=== PATIENT | female | born 1985 | race American Indian/Alaskan Native ===

== ENCOUNTER 2018-12-28 18:20 | Emergency (ER) | payer MEDICAID ==
--- NOTE | 2018-12-28 19:24 | Emergency Department Report ---
Chief Complaint: Abdominal Pain Stated Complaint: 6WKS/LIGHT HEADED/ABD PAIN Time Seen by Provider: 12/28/18 19:22 - HPI History of Present Illness: pt states that she is 6 weeks states she is having abd pain no vomiting, diarrhea, fever no urinary sx no vaginal bleeding no PMHx has not seen OB had her confirmed by center MSE screening note: Focused history and physical exam performed. Due to findings the following was ordered: UA, labs, US OB ED Disposition for MSE Condition: Stable Instructions: Abdominal Pain (ED)
[2018-12-28 19:52] LABS: Basophils # (Auto) 0.1 K/mm3 (0.0-0.1); Eosinophils # (Auto) 0.1 K/mm3 (0.0-0.4); Eosinophils % (Auto) 1.9 % (0.0-4.3); Hematocrit 36.2 % (30.3-42.9); Lymphocytes # (Auto) 1.7 K/mm3 (1.2-5.4); Lymphocytes % (Auto) 28.2 % (13.4-35.0); Mean Corpuscular HGB Conc 33 % (30-34); Mean Corpuscular Volume 87 fl (79-97); Monocytes # (Auto) 0.4 K/mm3 (0.0-0.8); Platelet Count 225 K/mm3 (140-440); Red Blood Count 4.16 M/mm3 (3.65-5.03); Red Cell Distribution Width 13.9 % (13.2-15.2)
[2018-12-28 20:06] LABS: Alanine Aminotransferase 11 units/L (7-56); BUN/Creatinine Ratio 23; Blood Urea Nitrogen 9 mg/dL (7-17); Calcium 9.4 mg/dL (8.4-10.2); Hemolysis Index 42
[2018-12-28 21:44] LABS: Bacteria,Urine 2+ /HPF (Negative); Bilirubin,Urine NEG (Negative); Blood,Urine NEG (Negative); Color,Urine Straw (Yellow); Mucus,Urine FEW /HPF; Protein,Urine <15 mg/dL mg/dL (Negative); Urobilinogen,Urine < 2.0 mg/dL (<2.0)
--- NOTE | 2018-12-28 22:21 | Ultrasound Report ---
PROCEDURE: US OB <= 14 WEEKS FETUS TECHNIQUE: Transabdominal ultrasound of the uterus including fetus were obtained. HISTORY: abd pain, 6 weeks COMPARISONS: Transvaginal OB ultrasound also performed today. FINDINGS: This report was generated using images from both a transabdominal and transvaginal OB ultrasound both of which were performed today. Transabdominal scan was limited due to the lack of a full maternal ur inary bladder. There is a single living intrauterine gestation visualized with a heart rate of 110 bpm. Yolk sac and pole are visualized. [place]-rump length measurement of the pole is 4.5 mm corresponding t o an age of 6 weeks 1 day. Fetus currently too small to accurately assess anatomy. No gross abnormali ty is visualized. The amount of amniotic fluid appears normal. Minimal nonspecific free fluid is seen in the cul-de-sac. There is a cystic lesion visualized in the right ovary measuring 2.1 cm suggesting corpus luteum cyst of . Right and left ovaries otherwise are unremarkable. IMPRESSION: There is a single living intrauterine gestation. By crown-rump length measurements the estimated age is 6 weeks 1 day. This places the EDC at 08/22/2019 +/- 0.5 weeks. Fetus currently too small to asses s anatomy. No gross abnormalities seen. No evidence of subchorionic hemorrhage. Cystic area visualized right ovary suggesting corpus luteum cyst of . Consider follow-up OB ultrasound at 18-20 weeks to evaluate anatomy. This document is electronically signed by Dustin Day MD., December 28 2018 10:18:55 PM ET
--- NOTE | 2018-12-28 22:22 | Ultrasound Report ---
PROCEDURE: US OB TRANSVAGINAL TECHNIQUE: Transvaginal OB ultrasound was performed with image documentation.. HISTORY: abd pain, 6 weeks COMPARISONS: Transabdominal OB ultrasound also performed today. FINDINGS: This report was generated using images from both a transabdominal and transvaginal OB ultrasound both of which were performed today. Transabdominal scan was limited due to the lack of a full maternal ur inary bladder. There is a single living intrauterine gestation visualized with a heart rate of 110 bpm. Yolk sac and pole are visualized. [place]-rump length measurement of the pole is 4.5 mm corresponding t o an age of 6 weeks 1 day. Fetus currently too small to accurately assess anatomy. No gross abnormali ty is visualized. The amount of amniotic fluid appears normal. Minimal nonspecific free fluid is seen in the cul-de-sac. There is a cystic lesion visualized in the right ovary measuring 2.1 cm suggesting corpus luteum cyst of . Right and left ovaries otherwise are unremarkable. IMPRESSION: There is a single living intrauterine gestation. By crown-rump length measurements the estimated age is 6 weeks 1 day. This places the EDC at 08/22/2019 +/- 0.5 weeks. Fetus currently too small to asses s anatomy. No gross abnormalities seen. No evidence of subchorionic hemorrhage. Cystic area visualized right ovary suggesting corpus luteum cyst of . Consider follow-up OB ultrasound at 18-20 weeks to evaluate anatomy. This document is electronically signed by Dustin Day MD., December 28 2018 10:20:00 PM ET
[2018-12-28 22:56] VITALS: BP 113/64
--- NOTE | 2018-12-28 23:01 | Emergency Department Report ---
ED General Adult HPI - General Chief complaint: Abdominal Pain Stated complaint: 6WKS/LIGHT HEADED/ABD PAIN Time Seen by Provider: 12/28/18 19:22 Source: patient Mode of arrival: Ambulatory Limitations: No Limitations - History of Present Illness Initial comments: Patient is 33 years old female 4 para 1, 2 at 6 week gestation. Patient presented to the ER stating that she is having stomach distention and bloating since this morning. Patient denied any abdominal pain or cramping. No vaginal bleeding or vaginal discharge. No dysuria or hematuria. Patient also denied any headache, chest pain or shortness of breath. No care so far. Severity scale (0 -10): 0 - Related Data Allergies Allergy/AdvReac Type Severity Reaction Status Date / Time No Known Allergies Allergy Verified 12/28/18 18:36 ED Review of Systems ROS: Stated complaint: 6WKS/LIGHT HEADED/ABD PAIN Other details as noted in HPI Comment: All other systems reviewed and negative Constitutional: denies: chills, fever ENT: denies: throat pain Respiratory: denies: cough, orthopnea, shortness of breath, SOB with exertion, SOB at rest, wheezing Cardiovascular: denies: chest pain, palpitations Gastrointestinal: nausea. denies: abdominal pain, vomiting, diarrhea, constipation, hematemesis, melena, hematochezia Musculoskeletal: denies: back pain Neurological: denies: headache, weakness, numbness, paresthesias, confusion ED Past Medical Hx - Past Medical History Previous Medical History?: No - Surgical History Past Surgical History?: Yes Additional Surgical History: Left Femur Benja - Social History Smoking Status: Former Smoker Substance Use Type: None ED Physical Exam - General Limitations: No Limitations General appearance: alert, in no apparent distress - Head Head exam: Present: atraumatic, normocephalic, normal inspection - Eye Eye exam: Present: normal appearance, PERRL - ENT ENT exam: Present: normal exam, normal orophraynx, mucous membranes moist - Neck Neck exam: Present: normal inspection, full ROM. Absent: tenderness, meningismus, lymphadenopathy, thyromegaly - Respiratory Respiratory exam: Present: normal lung sounds bilaterally. Absent: respiratory distress, wheezes, rales, rhonchi, stridor, chest wall tenderness, accessory muscle use, decreased breath sounds, prolonged expiratory - Cardiovascular Cardiovascular Exam: Present: regular rate, normal rhythm, normal heart sounds - GI/Abdominal GI/Abdominal exam: Present: soft, normal bowel sounds. Absent: distended, tenderness, guarding, rebound, rigid, organomegaly, mass, bruit, pulsatile mass, hernia - Extremities Exam Extremities exam: Present: normal inspection, full ROM, normal capillary refill. Absent: pedal edema, calf tenderness - Back Exam Back exam: Present: normal inspection, full ROM. Absent: tenderness, CVA tenderness (R), CVA tenderness (L), muscle spasm, paraspinal tenderness, vertebral tenderness - Neurological Exam Neurological exam: Present: alert, oriented X3, CN II-XII intact, normal gait, reflexes normal - Skin Skin exam: Present: warm, intact, normal color ED Course Vital Signs 12/28/18 12/28/18 19:22 22:55 Temperature 98.5 F Pulse Rate 67 70 Respiratory 20 15 Rate Blood Pressure 114/76 Blood Pressure 113/64 [Left] O2 Sat by Pulse 99 99 Oximetry ED Medical Decision Making - Lab Data Result diagrams: 12/28/18 19:32 12/28/18 19:32 - Radiology Data Radiology results: report reviewed Referring Physician: ELÍAS BERKOWITZ Patient Name: CAT MELGAR Date of : 1985 Sex: Female Report Date: 2018-12-28 Report Status: Finalized Findings [facility] [address] [id number] Ultrasound Report Signed Patient: CAT MELGAR MR#: [id number] 7 : 1985 Acct:[id number] Age/Sex: 33 / F ADM Date: 12/28/18 Loc: ED Attending Dr: Ordering Physician: RADHA ROSA Date of Service: 12/28/18 Procedure(s): US OB transvaginal Accession Number(s): [id number] cc: RADHA ROSA PROCEDURE: US OB TRANSVAGINAL TECHNIQUE: Transvaginal OB ultrasound was performed with image documentation.. HISTORY: abd pain, 6 weeks COMPARISONS: Transabdominal OB ultrasound also performed today. FINDINGS: This report was generated using images from both a transabdominal and transvaginal OB ultrasound both of which were performed today. Transabdominal scan was limited due to the lack of a full maternal urinary bladder. There is a single living intrauterine gestation visualized with a heart rate of 110 bpm. Yolk sac and pole are visualized. [place]-rump length measurement of the pole is 4.5 mm corresponding to an age of 6 weeks 1 day. Fetus currently too small to accur ately assess anatomy. No gross abnormality is visualized. The amount of amniotic fluid appears normal. Minimal nonspecific free fluid is seen in the cul-de-sac. There is a cystic lesion visualized in the right ovary measuring 2.1 cm suggesting corpus luteum cyst of . Right and left ovaries otherwise are unremarkable. IMPRESSION: There is a single living intrauterine gestation. By crown-rump length measurements the estimated age is 6 weeks 1 day. This places the EDC at 08/22/2019 +/- 0.5 weeks. Fetus currently too small to assess anatomy. No gross abnormalities seen. No evidence of subchorionic hemorrhage. Cystic area visualized right ovary suggesting corpus luteum cyst of . Consider follow-up OB ultrasound at 18-20 weeks to evaluate anatomy. This document is electronically signed by Dustin Banks MD., December 28 2018 10:20:00 PM ET Transcribed By: AGUSTINA Dictated By: DUSTIN BANKS MD Electronically Authenticated By: DUSTIN BANKS MD Signed Date/Time: 12/28/182221 DD/ 36 TD/TT: 12/28/182136 - Medical Decision Making Patient stated that her symptoms resolved. I gave the patient my [facility] to follow-up with. Patient was started on Zofran and vitamins. Advised the patient to return to the ER if symptoms are not improved. Critical care attestation.: If time is entered above; I have spent that time in minutes in the direct care of this critically ill patient, excluding procedure time. ED Disposition Clinical Impression: Abdominal pain affecting Disposition: DC-01 TO HOME OR SELFCARE Is pt being admited?: No Condition: Stable Instructions: Abdominal Pain in (ED) Referrals: TIAGO VARGAS MD [Primary Care Provider] - 3-5 Days [facility] [Provider Group] - 3-5 Days
== END 2018-12-28 23:10 | disposition home or self-care (01) ==
LOC: ED 18:20
DX: O26.891 Other specified pregnancy related conditions, first trimester (principal); R10.9 Unspecified abdominal pain; Z3A.01 Less than 8 weeks gestation of pregnancy; Z87.891 Personal history of nicotine dependence
CPT/HCPCS: 36415; 76801; 76817; 80053; 81001; 83690; 84702; 85025; 99284

== ENCOUNTER 2019-03-26 14:28 | Emergency (ER) | payer OTHER, MEDICAID ==
[2019-03-26 14:39] VITALS: BP 124/71
[2019-03-26] MEDS ORDERED: TYLENOL PO ONE (14:52)
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
[2019-03-26] MEDS ORDERED: TYLENOL ONE (14:56)
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
== END 2019-03-26 17:30 | disposition home or self-care (01) ==
LOC: ED 14:28
DX: O9A.212 Injury, poisoning and certain other consequences of external causes complicating pregnancy, second trimester (principal); S16.1XXA Strain of muscle, fascia and tendon at neck level, initial encounter; Z3A.19 19 weeks gestation of pregnancy; Z98.890 Other specified postprocedural states; Z79.899 Other long term (current) drug therapy; V89.2XXA Person injured in unspecified motor-vehicle accident, traffic, initial encounter; Y93.89 Activity, other specified; Y92.481 Parking lot as the place of occurrence of the external cause; Y99.8 Other external cause status
CPT/HCPCS: 99282

== ENCOUNTER 2019-08-17 23:30 | Inpatient (IN) | payer MEDICAID ==
[2019-08-18] MEDS ORDERED: LIDOCAINE (2%) 20 MG/1 ML VIAL 20 ML MDV INFILTRATI ONE ×2 (02:59→18:28)
[2019-08-18] MEDS ORDERED: BUTORPHANOL 2 MG/1 ML INJ IV PRN (02:59)
[2019-08-18] MEDS ORDERED: ePHEDrine SULFATE 50 MG/1 ML INJ IV PRN ×2 (02:59→08:41)
[2019-08-18] MEDS ORDERED: MINERAL OIL 30 ML ORAL LIQD PO PRN (02:59)
[2019-08-18] MEDS ORDERED: TERBUTALINE 1 MG/1 ML INJ IVP PRN (02:59)
[2019-08-18] MEDS ORDERED: fentaNYL 100 MCG/2 ML INJ IV PRN (02:59)
[2019-08-18] MEDS ORDERED: TERBUTALINE 1 MG/1 ML INJ SUB-Q PRN (02:59)
[2019-08-18] MEDS ORDERED: OXYTOCIN 20 UNIT/1000ML DRIP 20 UNITS/1,000 ML BAG IV SCH ×2 (03:00→21:30)
[2019-08-18 03:35] LABS: Hematocrit 37.8 % (30.3-42.9); Hemoglobin 12.5 gm/dl (10.1-14.3); Mean Corpuscular HGB Conc 33 % (30-34); Mean Corpuscular Volume 84 fl (79-97); Platelet Count 221 K/mm3 (140-440); Red Blood Count 4.52 M/mm3 (3.65-5.03); Red Cell Distribution Width 15.5 % (13.2-15.2)
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
[2019-08-18] MEDS: LACTATED RINGERS 1,000 ML IV SCH ×3 (06:45→10:28)
[2019-08-18] MEDS ORDERED: OXYTOCIN DRIP 30 UNITS/500 ML BAG IV SCH (07:00)
--- NOTE | 2019-08-18 07:15 | Progress Note ---
Assessment and Plan 34 y.o. @ 40wks in early labor. Plan to start pitocin per protocol. Epidural placement and AROM. Subjective - Subjective Date of service: 08/18/19 (Pt anxious, reassured, will get epidural) Principal diagnosis: 40 wks term, early labor Objective - Vital Signs Vital Signs: Vital Signs - 12hr 08/17/19 08/18/19 08/18/19 23:39 04:08 04:10 Temperature 97.2 F L Pulse Rate 94 H 91 H 91 H Respiratory 18 Rate Blood Pressure 130/83 124/74 Blood Pressure 124/74 [Right] O2 Sat by Pulse 98 Oximetry 08/18/19 08/18/19 08/18/19 04:47 05:00 05:20 Temperature Pulse Rate 94 H 94 H 81 Respiratory 18 Rate Blood Pressure 113/72 123/81 Blood Pressure 113/72 [Right] O2 Sat by Pulse Oximetry 08/18/19 08/18/19 08/18/19 05:45 05:49 05:50 Temperature Pulse Rate 93 H 97 H 92 H Respiratory Rate Blood Pressure 118/74 Blood Pressure [Right] O2 Sat by Pulse 100 98 Oximetry 08/18/19 08/18/19 08/18/19 05:55 06:00 06:05 Temperature Pulse Rate 97 H 97 H 98 H Respiratory 20 Rate Blood Pressure Blood Pressure 118/74 [Right] O2 Sat by Pulse 99 97 97 Oximetry 08/18/19 08/18/19 08/18/19 06:10 06:15 06:18 Temperature Pulse Rate 92 H 93 H 96 H Respiratory Rate Blood Pressure 115/79 Blood Pressure [Right] O2 Sat by Pulse 98 97 Oximetry 08/18/19 08/18/19 08/18/19 06:20 06:25 06:30 Temperature Pulse Rate 95 H 97 H 89 Respiratory Rate Blood Pressure Blood Pressure [Right] O2 Sat by Pulse 98 97 98 Oximetry 08/18/19 08/18/19 08/18/19 06:55 07:00 07:03 Temperature 98.3 F Pulse Rate 94 H 93 H 86 Respiratory 18 Rate Blood Pressure 134/61 Blood Pressure 134/61 [Right] O2 Sat by Pulse 97 98 Oximetry 08/18/19 08/18/19 07:04 07:09 Temperature Pulse Rate 91 H 95 H Respiratory Rate Blood Pressure Blood Pressure [Right] O2 Sat by Pulse 99 98 Oximetry - Exam Breasts: deferred Cardiovascular: Regular rate Lungs: Normal air movement Abdomen: Present: normal appearance Vulva: both: normal Uterus: Present: normal Uterine Contraction Monitor Mode: External Cervical Dilatation: 3 Cervical Effacement Percentage: 50 station: -2 Uterine Contraction Pattern: Irregular Uterine Tone Measurement Phase: Resting Uterine Contraction Intensity: Mild Extremities: normal - Labs Labs: Abnormal Labs 08/18/19 03:00 RDW 15.5 H Laboratory Results - last 24 hr 08/18/19 08/18/19 03:00 03:00 WBC 6.9 RBC 4.52 Hgb 12.5 Hct 37.8 MCV 84 MCH 28 MCHC 33 RDW 15.5 H Plt Count 221 Blood Type B POSITIVE Antibody Screen Negative
[2019-08-18] MEDS ORDERED: EPINEPHrine 1:10,000 1 MG/10 ML SYRINGE ONE (08:19)
[2019-08-18] MEDS ORDERED: SODIUM CHLORIDE P/F VIAL 10 ML 20 ML ONE (08:21)
[2019-08-18] MEDS ORDERED: DEXMEDETOMIDINE 200 MCG/2 ML VIAL IV ONE (08:21)
[2019-08-18] MEDS ORDERED: NALOXONE 2 MG/2 ML INJ IV PRN (08:41)
--- NOTE | 2019-08-18 08:43 | Anesthesia Consultation ---
Anesthesia Consult and Med Hx Date of service: 08/18/19 - Airway Anesthetic Teeth Evaluation: Good ROM Head & Neck: Adequate Mental/Hyoid Distance: Adequate Mallampati Class: Class II Intubation Access Assessment: Probably Good - Pulmonary Exam CTA: Yes - Cardiac Exam Cardiac Exam: RRR - Pre-Operative Health Status ASA Pre-Surgery Classification: ASA2 Proposed Anesthetic Plan: Epidural - Pulmonary Hx Asthma: No COPD: No Hx Pneumonia: No - Cardiovascular System Hx Hypertension: No - Central Nervous System Hx Seizures: No Hx Psychiatric Problems: No - Endocrine Hx Renal Disease: No Hx End Stage Renal Disease: No Hx Hypothyroidism: No Hx Hyperthyroidism: No - Hematic Hx Anemia: No Hx Sickle Cell Disease: No - Other Systems Hx Alcohol Use: No
[2019-08-18] MEDS ORDERED: fentaNYL-BUPIV 2 MCG/ML-0.125% 200 MCG/100 ML BAG EPIDURAL SCH (09:00)
--- NOTE | 2019-08-18 12:28 | Progress Note ---
Assessment and Plan 34 y.o. 40+ wks, early labor. AROM at 1205 clear fluid. FSE and IUPC placed. Continue pitocin per protocol. Anticipate . Subjective - Subjective Date of service: 08/18/19 (Pt sleeping, epidural in place, comfortable) Principal diagnosis: 40 wks term, early labor Objective - Vital Signs Vital Signs: Vital Signs - 12hr 08/18/19 08/18/19 08/18/19 04:08 04:10 04:47 Temperature 97.2 F L Pulse Rate 91 H 91 H 94 H Respiratory 18 Rate Blood Pressure 124/74 113/72 Blood Pressure 124/74 [Right] O2 Sat by Pulse 98 Oximetry 08/18/19 08/18/19 08/18/19 05:00 05:20 05:45 Temperature Pulse Rate 94 H 81 93 H Respiratory 18 Rate Blood Pressure 123/81 Blood Pressure 113/72 [Right] O2 Sat by Pulse 100 Oximetry 08/18/19 08/18/19 08/18/19 05:49 05:50 05:55 Temperature Pulse Rate 97 H 92 H 97 H Respiratory Rate Blood Pressure 118/74 Blood Pressure [Right] O2 Sat by Pulse 98 99 Oximetry 08/18/19 08/18/19 08/18/19 06:00 06:05 06:10 Temperature Pulse Rate 97 H 98 H 92 H Respiratory 20 Rate Blood Pressure Blood Pressure 118/74 [Right] O2 Sat by Pulse 97 97 98 Oximetry 08/18/19 08/18/19 08/18/19 06:15 06:18 06:20 Temperature Pulse Rate 93 H 96 H 95 H Respiratory Rate Blood Pressure 115/79 Blood Pressure [Right] O2 Sat by Pulse 97 98 Oximetry 08/18/19 08/18/19 08/18/19 06:25 06:30 06:55 Temperature Pulse Rate 97 H 89 94 H Respiratory Rate Blood Pressure Blood Pressure [Right] O2 Sat by Pulse 97 98 97 Oximetry 08/18/19 08/18/19 08/18/19 07:00 07:03 07:04 Temperature 98.3 F Pulse Rate 93 H 86 91 H Respiratory 18 Rate Blood Pressure 134/61 Blood Pressure 134/61 [Right] O2 Sat by Pulse 98 99 Oximetry 08/18/19 08/18/19 08/18/19 07:09 07:14 07:18 Temperature Pulse Rate 95 H 93 H 103 H Respiratory Rate Blood Pressure 116/76 Blood Pressure [Right] O2 Sat by Pulse 98 98 Oximetry 08/18/19 08/18/19 08/18/19 07:19 07:24 07:29 Temperature Pulse Rate 96 H 98 H 84 Respiratory Rate Blood Pressure Blood Pressure [Right] O2 Sat by Pulse 97 96 97 Oximetry 08/18/19 08/18/19 08/18/19 07:34 07:39 07:44 Temperature Pulse Rate 92 H 86 89 Respiratory Rate Blood Pressure Blood Pressure [Right] O2 Sat by Pulse 96 97 95 Oximetry 08/18/19 08/18/19 08/18/19 07:48 07:49 07:54 Temperature Pulse Rate 90 88 90 Respiratory Rate Blood Pressure 125/73 Blood Pressure [Right] O2 Sat by Pulse 97 96 Oximetry 08/18/19 08/18/19 08/18/19 07:59 08:04 08:09 Temperature Pulse Rate 86 89 83 Respiratory Rate Blood Pressure Blood Pressure [Right] O2 Sat by Pulse 97 97 97 Oximetry 08/18/19 08/18/19 08/18/19 08:27 08:30 08:32 Temperature Pulse Rate 95 H 96 H 100 H Respiratory Rate Blood Pressure 122/69 121/66 Blood Pressure [Right] O2 Sat by Pulse 100 100 Oximetry 08/18/19 08/18/19 08/18/19 08:33 08:34 08:35 Temperature Pulse Rate 99 H 108 H 96 H Respiratory Rate Blood Pressure 133/67 131/63 142/60 Blood Pressure [Right] O2 Sat by Pulse Oximetry 08/18/19 08/18/19 08/18/19 08:36 08:37 08:41 Temperature Pulse Rate 103 H 104 H 97 H Respiratory Rate Blood Pressure 135/68 139/74 108/58 Blood Pressure [Right] O2 Sat by Pulse 88 97 Oximetry 08/18/19 08/18/19 08/18/19 08:42 08:43 08:44 Temperature Pulse Rate 94 H 96 H 89 Respiratory Rate Blood Pressure 99/54 106/52 108/55 Blood Pressure [Right] O2 Sat by Pulse 99 Oximetry 08/18/19 08/18/19 08/18/19 08:45 08:46 08:47 Temperature Pulse Rate 92 H 91 H 88 Respiratory Rate Blood Pressure 107/56 110/55 107/52 Blood Pressure [Right] O2 Sat by Pulse 99 Oximetry 08/18/19 08/18/19 08/18/19 08:49 08:50 08:52 Temperature Pulse Rate 86 90 89 Respiratory Rate Blood Pressure 103/55 101/53 Blood Pressure [Right] O2 Sat by Pulse 97 Oximetry 08/18/19 08/18/19 08/18/19 08:54 08:57 09:00 Temperature Pulse Rate 93 H 85 90 Respiratory Rate Blood Pressure 93/50 102/53 105/58 Blood Pressure [Right] O2 Sat by Pulse 97 Oximetry 08/18/19 08/18/19 08/18/19 09:02 09:03 09:06 Temperature Pulse Rate 88 82 83 Respiratory Rate Blood Pressure 106/55 101/56 Blood Pressure [Right] O2 Sat by Pulse 96 Oximetry 08/18/19 08/18/19 08/18/19 09:07 09:09 09:12 Temperature Pulse Rate 86 85 87 Respiratory Rate Blood Pressure 106/57 101/54 Blood Pressure [Right] O2 Sat by Pulse 98 98 Oximetry 08/18/19 08/18/19 08/18/19 09:15 09:17 09:18 Temperature Pulse Rate 85 100 H 93 H Respiratory Rate Blood Pressure 98/55 104/60 Blood Pressure [Right] O2 Sat by Pulse 98 Oximetry 08/18/19 08/18/19 08/18/19 09:21 09:22 09:24 Temperature Pulse Rate 85 81 85 Respiratory Rate Blood Pressure 99/56 105/58 Blood Pressure [Right] O2 Sat by Pulse 95 Oximetry 08/18/19 08/18/19 08/18/19 09:27 09:30 09:32 Temperature Pulse Rate 89 75 72 Respiratory Rate Blood Pressure 93/52 102/61 Blood Pressure [Right] O2 Sat by Pulse 96 96 Oximetry 08/18/19 08/18/19 08/18/19 09:33 09:36 09:37 Temperature Pulse Rate 82 83 79 Respiratory Rate Blood Pressure 102/60 101/59 Blood Pressure [Right] O2 Sat by Pulse 96 Oximetry 08/18/19 08/18/19 08/18/19 09:39 09:42 09:45 Temperature Pulse Rate 83 82 83 Respiratory Rate Blood Pressure 100/57 100/55 101/58 Blood Pressure [Right] O2 Sat by Pulse 96 Oximetry 08/18/19 08/18/19 08/18/19 09:47 09:48 09:51 Temperature Pulse Rate 83 85 81 Respiratory Rate Blood Pressure 104/55 98/54 Blood Pressure [Right] O2 Sat by Pulse 96 Oximetry 08/18/19 08/18/19 08/18/19 09:52 09:54 09:57 Temperature Pulse Rate 86 81 84 Respiratory Rate Blood Pressure 104/59 93/54 Blood Pressure [Right] O2 Sat by Pulse 96 96 Oximetry 08/18/19 08/18/19 08/18/19 10:00 10:02 10:03 Temperature Pulse Rate 81 75 81 Respiratory Rate Blood Pressure 105/58 110/61 Blood Pressure [Right] O2 Sat by Pulse 96 Oximetry 08/18/19 08/18/19 08/18/19 10:06 10:07 10:09 Temperature Pulse Rate 81 83 81 Respiratory Rate Blood Pressure 106/56 106/58 Blood Pressure [Right] O2 Sat by Pulse 96 Oximetry 08/18/19 08/18/19 08/18/19 10:12 10:15 10:17 Temperature Pulse Rate 86 92 H 92 H Respiratory Rate Blood Pressure 97/57 94/46 Blood Pressure [Right] O2 Sat by Pulse 97 96 Oximetry 08/18/19 08/18/19 08/18/19 10:18 10:21 10:22 Temperature Pulse Rate 80 89 88 Respiratory Rate Blood Pressure 101/55 94/53 Blood Pressure [Right] O2 Sat by Pulse 96 Oximetry 08/18/19 08/18/19 08/18/19 10:24 10:27 10:30 Temperature Pulse Rate 93 H 85 96 H Respiratory Rate Blood Pressure 95/54 101/56 91/51 Blood Pressure [Right] O2 Sat by Pulse 96 Oximetry 08/18/19 08/18/19 08/18/19 10:32 10:33 10:36 Temperature Pulse Rate 95 H 85 86 Respiratory Rate Blood Pressure 101/58 103/60 Blood Pressure [Right] O2 Sat by Pulse 97 Oximetry 08/18/19 08/18/19 08/18/19 10:37 10:39 10:42 Temperature Pulse Rate 95 H 85 95 H Respiratory Rate Blood Pressure 104/61 105/63 Blood Pressure [Right] O2 Sat by Pulse 97 97 Oximetry 08/18/19 08/18/19 08/18/19 10:46 10:47 10:48 Temperature Pulse Rate 92 H 88 90 Respiratory Rate Blood Pressure 106/59 97/56 Blood Pressure [Right] O2 Sat by Pulse 96 Oximetry 08/18/19 08/18/19 08/18/19 10:51 10:52 10:54 Temperature Pulse Rate 84 81 88 Respiratory Rate Blood Pressure 98/54 109/55 Blood Pressure [Right] O2 Sat by Pulse 95 94 Oximetry 08/18/19 08/18/19 08/18/19 10:57 11:00 11:02 Temperature Pulse Rate 88 86 87 Respiratory Rate Blood Pressure 103/55 107/57 Blood Pressure [Right] O2 Sat by Pulse 96 95 Oximetry 08/18/19 08/18/19 08/18/19 11:03 11:06 11:07 Temperature Pulse Rate 90 89 81 Respiratory Rate Blood Pressure 102/58 91/54 Blood Pressure [Right] O2 Sat by Pulse 93 Oximetry 08/18/19 08/18/19 08/18/19 11:09 11:12 11:15 Temperature Pulse Rate 80 86 84 Respiratory Rate Blood Pressure 108/59 97/53 104/59 Blood Pressure [Right] O2 Sat by Pulse 97 Oximetry 08/18/19 08/18/19 08/18/19 11:17 11:18 11:21 Temperature Pulse Rate 87 84 88 Respiratory Rate Blood Pressure 100/56 89/52 Blood Pressure [Right] O2 Sat by Pulse 99 Oximetry 08/18/19 08/18/19 08/18/19 11:22 11:24 11:27 Temperature Pulse Rate 77 81 88 Respiratory Rate Blood Pressure 105/60 102/56 Blood Pressure [Right] O2 Sat by Pulse 97 97 Oximetry 08/18/19 08/18/19 08/18/19 11:30 11:32 11:33 Temperature Pulse Rate 81 85 88 Respiratory Rate Blood Pressure 96/53 102/59 Blood Pressure [Right] O2 Sat by Pulse 95 Oximetry 08/18/19 08/18/19 08/18/19 11:36 11:37 11:39 Temperature Pulse Rate 78 85 73 Respiratory Rate Blood Pressure 107/62 111/64 Blood Pressure [Right] O2 Sat by Pulse 97 Oximetry 08/18/19 08/18/19 08/18/19 11:42 11:45 11:48 Temperature Pulse Rate 78 86 81 Respiratory Rate Blood Pressure 111/65 101/46 108/68 Blood Pressure [Right] O2 Sat by Pulse 96 94 Oximetry 08/18/19 08/18/19 08/18/19 11:51 11:54 11:57 Temperature Pulse Rate 78 83 92 H Respiratory Rate Blood Pressure 111/67 109/62 88/50 Blood Pressure [Right] O2 Sat by Pulse Oximetry 08/18/19 08/18/19 08/18/19 12:00 12:01 12:03 Temperature Pulse Rate 83 91 H 83 Respiratory Rate Blood Pressure 106/67 108/65 Blood Pressure [Right] O2 Sat by Pulse 96 Oximetry 08/18/19 08/18/19 08/18/19 12:06 12:11 12:16 Temperature Pulse Rate 84 82 77 Respiratory Rate Blood Pressure Blood Pressure [Right] O2 Sat by Pulse 95 96 96 Oximetry 08/18/19 08/18/19 12:18 12:21 Temperature Pulse Rate 83 83 Respiratory Rate Blood Pressure 103/59 Blood Pressure [Right] O2 Sat by Pulse 96 Oximetry - Exam Abdomen: Present: normal appearance Vulva: both: normal FHR: category 1 Uterine Contraction Monitor Mode: Internal (IUPC, FSE placed) Cervical Dilatation: 5 Cervical Effacement Percentage: 70 station: -1 Uterine Contraction Pattern: Regular Uterine Tone Measurement Phase: Resting Uterine Contraction Intensity: Moderate Extremities: normal Deep Tendon Reflex Grade: Normal +2 - Labs Labs: Abnormal Labs 08/18/19 03:00 RDW 15.5 H Laboratory Results - last 24 hr 08/18/19 08/18/19 03:00 03:00 WBC 6.9 RBC 4.52 Hgb 12.5 Hct 37.8 MCV 84 MCH 28 MCHC 33 RDW 15.5 H Plt Count 221 Blood Type B POSITIVE Antibody Screen Negative
--- NOTE | 2019-08-18 16:05 | Progress Note ---
Assessment and Plan A: 34 y.o. 38+ wks, active labor. P: Increase pitocin per protocol. Continue to monitor maternal and status. Anticipate . Subjective - Subjective Date of service: 08/18/19 (Pt reports feeling some pressure) Principal diagnosis: 40 wks term, early labor Objective - Vital Signs Vital Signs: Vital Signs - 12hr 08/18/19 08/18/19 08/18/19 04:08 04:10 04:47 Temperature 97.2 F L Pulse Rate 91 H 91 H 94 H Respiratory 18 Rate Blood Pressure 124/74 113/72 Blood Pressure 124/74 [Right] O2 Sat by Pulse 98 Oximetry 08/18/19 08/18/19 08/18/19 05:00 05:20 05:45 Temperature Pulse Rate 94 H 81 93 H Respiratory 18 Rate Blood Pressure 123/81 Blood Pressure 113/72 [Right] O2 Sat by Pulse 100 Oximetry 08/18/19 08/18/19 08/18/19 05:49 05:50 05:55 Temperature Pulse Rate 97 H 92 H 97 H Respiratory Rate Blood Pressure 118/74 Blood Pressure [Right] O2 Sat by Pulse 98 99 Oximetry 08/18/19 08/18/19 08/18/19 06:00 06:05 06:10 Temperature Pulse Rate 97 H 98 H 92 H Respiratory 20 Rate Blood Pressure Blood Pressure 118/74 [Right] O2 Sat by Pulse 97 97 98 Oximetry 08/18/19 08/18/19 08/18/19 06:15 06:18 06:20 Temperature Pulse Rate 93 H 96 H 95 H Respiratory Rate Blood Pressure 115/79 Blood Pressure [Right] O2 Sat by Pulse 97 98 Oximetry 08/18/19 08/18/19 08/18/19 06:25 06:30 06:55 Temperature Pulse Rate 97 H 89 94 H Respiratory Rate Blood Pressure Blood Pressure [Right] O2 Sat by Pulse 97 98 97 Oximetry 08/18/19 08/18/19 08/18/19 07:00 07:03 07:04 Temperature 98.3 F Pulse Rate 93 H 86 91 H Respiratory 18 Rate Blood Pressure 134/61 Blood Pressure 134/61 [Right] O2 Sat by Pulse 98 99 Oximetry 08/18/19 08/18/19 08/18/19 07:09 07:14 07:18 Temperature Pulse Rate 95 H 93 H 103 H Respiratory Rate Blood Pressure 116/76 Blood Pressure [Right] O2 Sat by Pulse 98 98 Oximetry 08/18/19 08/18/19 08/18/19 07:19 07:24 07:29 Temperature Pulse Rate 96 H 98 H 84 Respiratory Rate Blood Pressure Blood Pressure [Right] O2 Sat by Pulse 97 96 97 Oximetry 08/18/19 08/18/19 08/18/19 07:34 07:39 07:44 Temperature Pulse Rate 92 H 86 89 Respiratory Rate Blood Pressure Blood Pressure [Right] O2 Sat by Pulse 96 97 95 Oximetry 08/18/19 08/18/19 08/18/19 07:48 07:49 07:54 Temperature Pulse Rate 90 88 90 Respiratory Rate Blood Pressure 125/73 Blood Pressure [Right] O2 Sat by Pulse 97 96 Oximetry 08/18/19 08/18/19 08/18/19 07:59 08:04 08:09 Temperature Pulse Rate 86 89 83 Respiratory Rate Blood Pressure Blood Pressure [Right] O2 Sat by Pulse 97 97 97 Oximetry 08/18/19 08/18/19 08/18/19 08:27 08:30 08:32 Temperature Pulse Rate 95 H 96 H 100 H Respiratory Rate Blood Pressure 122/69 121/66 Blood Pressure [Right] O2 Sat by Pulse 100 100 Oximetry 08/18/19 08/18/19 08/18/19 08:33 08:34 08:35 Temperature Pulse Rate 99 H 108 H 96 H Respiratory Rate Blood Pressure 133/67 131/63 142/60 Blood Pressure [Right] O2 Sat by Pulse Oximetry 08/18/19 08/18/19 08/18/19 08:36 08:37 08:41 Temperature Pulse Rate 103 H 104 H 97 H Respiratory Rate Blood Pressure 135/68 139/74 108/58 Blood Pressure [Right] O2 Sat by Pulse 88 97 Oximetry 08/18/19 08/18/19 08/18/19 08:42 08:43 08:44 Temperature Pulse Rate 94 H 96 H 89 Respiratory Rate Blood Pressure 99/54 106/52 108/55 Blood Pressure [Right] O2 Sat by Pulse 99 Oximetry 08/18/19 08/18/19 08/18/19 08:45 08:46 08:47 Temperature Pulse Rate 92 H 91 H 88 Respiratory Rate Blood Pressure 107/56 110/55 107/52 Blood Pressure [Right] O2 Sat by Pulse 99 Oximetry 08/18/19 08/18/19 08/18/19 08:49 08:50 08:52 Temperature Pulse Rate 86 90 89 Respiratory Rate Blood Pressure 103/55 101/53 Blood Pressure [Right] O2 Sat by Pulse 97 Oximetry 08/18/19 08/18/19 08/18/19 08:54 08:57 09:00 Temperature Pulse Rate 93 H 85 90 Respiratory Rate Blood Pressure 93/50 102/53 105/58 Blood Pressure [Right] O2 Sat by Pulse 97 Oximetry 08/18/19 08/18/19 08/18/19 09:02 09:03 09:06 Temperature Pulse Rate 88 82 83 Respiratory Rate Blood Pressure 106/55 101/56 Blood Pressure [Right] O2 Sat by Pulse 96 Oximetry 08/18/19 08/18/19 08/18/19 09:07 09:09 09:12 Temperature Pulse Rate 86 85 87 Respiratory Rate Blood Pressure 106/57 101/54 Blood Pressure [Right] O2 Sat by Pulse 98 98 Oximetry 08/18/19 08/18/19 08/18/19 09:15 09:17 09:18 Temperature Pulse Rate 85 100 H 93 H Respiratory Rate Blood Pressure 98/55 104/60 Blood Pressure [Right] O2 Sat by Pulse 98 Oximetry 08/18/19 08/18/19 08/18/19 09:21 09:22 09:24 Temperature Pulse Rate 85 81 85 Respiratory Rate Blood Pressure 99/56 105/58 Blood Pressure [Right] O2 Sat by Pulse 95 Oximetry 08/18/19 08/18/19 08/18/19 09:27 09:30 09:32 Temperature Pulse Rate 89 75 72 Respiratory Rate Blood Pressure 93/52 102/61 Blood Pressure [Right] O2 Sat by Pulse 96 96 Oximetry 08/18/19 08/18/19 08/18/19 09:33 09:36 09:37 Temperature Pulse Rate 82 83 79 Respiratory Rate Blood Pressure 102/60 101/59 Blood Pressure [Right] O2 Sat by Pulse 96 Oximetry 08/18/19 08/18/19 08/18/19 09:39 09:42 09:45 Temperature Pulse Rate 83 82 83 Respiratory Rate Blood Pressure 100/57 100/55 101/58 Blood Pressure [Right] O2 Sat by Pulse 96 Oximetry 08/18/19 08/18/19 08/18/19 09:47 09:48 09:51 Temperature Pulse Rate 83 85 81 Respiratory Rate Blood Pressure 104/55 98/54 Blood Pressure [Right] O2 Sat by Pulse 96 Oximetry 08/18/19 08/18/19 08/18/19 09:52 09:54 09:57 Temperature Pulse Rate 86 81 84 Respiratory Rate Blood Pressure 104/59 93/54 Blood Pressure [Right] O2 Sat by Pulse 96 96 Oximetry 08/18/19 08/18/19 08/18/19 10:00 10:02 10:03 Temperature Pulse Rate 81 75 81 Respiratory Rate Blood Pressure 105/58 110/61 Blood Pressure [Right] O2 Sat by Pulse 96 Oximetry 08/18/19 08/18/19 08/18/19 10:06 10:07 10:09 Temperature Pulse Rate 81 83 81 Respiratory Rate Blood Pressure 106/56 106/58 Blood Pressure [Right] O2 Sat by Pulse 96 Oximetry 08/18/19 08/18/19 08/18/19 10:12 10:15 10:17 Temperature Pulse Rate 86 92 H 92 H Respiratory Rate Blood Pressure 97/57 94/46 Blood Pressure [Right] O2 Sat by Pulse 97 96 Oximetry 08/18/19 08/18/19 08/18/19 10:18 10:21 10:22 Temperature Pulse Rate 80 89 88 Respiratory Rate Blood Pressure 101/55 94/53 Blood Pressure [Right] O2 Sat by Pulse 96 Oximetry 08/18/19 08/18/19 08/18/19 10:24 10:27 10:30 Temperature Pulse Rate 93 H 85 96 H Respiratory Rate Blood Pressure 95/54 101/56 91/51 Blood Pressure [Right] O2 Sat by Pulse 96 Oximetry 08/18/19 08/18/19 08/18/19 10:32 10:33 10:36 Temperature Pulse Rate 95 H 85 86 Respiratory Rate Blood Pressure 101/58 103/60 Blood Pressure [Right] O2 Sat by Pulse 97 Oximetry 08/18/19 08/18/19 08/18/19 10:37 10:39 10:42 Temperature Pulse Rate 95 H 85 95 H Respiratory Rate Blood Pressure 104/61 105/63 Blood Pressure [Right] O2 Sat by Pulse 97 97 Oximetry 08/18/19 08/18/19 08/18/19 10:46 10:47 10:48 Temperature Pulse Rate 92 H 88 90 Respiratory Rate Blood Pressure 106/59 97/56 Blood Pressure [Right] O2 Sat by Pulse 96 Oximetry 08/18/19 08/18/19 08/18/19 10:51 10:52 10:54 Temperature Pulse Rate 84 81 88 Respiratory Rate Blood Pressure 98/54 109/55 Blood Pressure [Right] O2 Sat by Pulse 95 94 Oximetry 08/18/19 08/18/19 08/18/19 10:57 11:00 11:02 Temperature Pulse Rate 88 86 87 Respiratory Rate Blood Pressure 103/55 107/57 Blood Pressure [Right] O2 Sat by Pulse 96 95 Oximetry 08/18/19 08/18/19 08/18/19 11:03 11:06 11:07 Temperature Pulse Rate 90 89 81 Respiratory Rate Blood Pressure 102/58 91/54 Blood Pressure [Right] O2 Sat by Pulse 93 Oximetry 08/18/19 08/18/19 08/18/19 11:09 11:12 11:15 Temperature Pulse Rate 80 86 84 Respiratory Rate Blood Pressure 108/59 97/53 104/59 Blood Pressure [Right] O2 Sat by Pulse 97 Oximetry 08/18/19 08/18/19 08/18/19 11:17 11:18 11:21 Temperature Pulse Rate 87 84 88 Respiratory Rate Blood Pressure 100/56 89/52 Blood Pressure [Right] O2 Sat by Pulse 99 Oximetry 08/18/19 08/18/19 08/18/19 11:22 11:24 11:27 Temperature Pulse Rate 77 81 88 Respiratory Rate Blood Pressure 105/60 102/56 Blood Pressure [Right] O2 Sat by Pulse 97 97 Oximetry 08/18/19 08/18/19 08/18/19 11:30 11:32 11:33 Temperature Pulse Rate 81 85 88 Respiratory Rate Blood Pressure 96/53 102/59 Blood Pressure [Right] O2 Sat by Pulse 95 Oximetry 08/18/19 08/18/19 08/18/19 11:36 11:37 11:39 Temperature Pulse Rate 78 85 73 Respiratory Rate Blood Pressure 107/62 111/64 Blood Pressure [Right] O2 Sat by Pulse 97 Oximetry 08/18/19 08/18/19 08/18/19 11:42 11:45 11:48 Temperature Pulse Rate 78 86 81 Respiratory Rate Blood Pressure 111/65 101/46 108/68 Blood Pressure [Right] O2 Sat by Pulse 96 94 Oximetry 08/18/19 08/18/1919 11:51 11:54 11:57 Temperature Pulse Rate 78 83 92 H Respiratory Rate Blood Pressure 111/67 109/62 88/50 Blood Pressure [Right] O2 Sat by Pulse Oximetry 08/18/19 08/18/19 08/18/19 12:00 12:01 12:03 Temperature Pulse Rate 83 91 H 83 Respiratory Rate Blood Pressure 106/67 108/65 Blood Pressure [Right] O2 Sat by Pulse 96 Oximetry 08/18/19 08/18/19 08/18/19 12:06 12:11 12:16 Temperature Pulse Rate 84 82 77 Respiratory Rate Blood Pressure Blood Pressure [Right] O2 Sat by Pulse 95 96 96 Oximetry 08/18/19 08/18/19 08/18/19 12:18 12:21 12:26 Temperature Pulse Rate 83 83 80 Respiratory Rate Blood Pressure 103/59 Blood Pressure [Right] O2 Sat by Pulse 96 96 Oximetry 08/18/19 08/18/19 08/18/19 12:31 12:33 12:36 Temperature Pulse Rate 83 78 88 Respiratory Rate Blood Pressure 94/55 Blood Pressure [Right] O2 Sat by Pulse 97 97 Oximetry 08/18/19 08/18/19 08/18/19 12:41 12:46 12:48 Temperature Pulse Rate 75 71 80 Respiratory Rate Blood Pressure 94/51 Blood Pressure [Right] O2 Sat by Pulse 96 96 Oximetry 08/18/19 08/18/19 08/18/19 12:51 12:56 13:01 Temperature Pulse Rate 81 73 79 Respiratory Rate Blood Pressure Blood Pressure [Right] O2 Sat by Pulse 96 96 97 Oximetry 08/18/19 08/18/19 08/18/19 13:04 13:06 13:11 Temperature Pulse Rate 78 75 79 Respiratory Rate Blood Pressure 86/50 Blood Pressure [Right] O2 Sat by Pulse 95 96 Oximetry 08/18/19 08/18/19 08/18/19 13:16 13:18 13:21 Temperature Pulse Rate 81 85 76 Respiratory Rate Blood Pressure 98/53 Blood Pressure [Right] O2 Sat by Pulse 96 97 Oximetry 08/18/19 08/18/19 08/18/19 13:26 13:31 13:33 Temperature Pulse Rate 81 79 81 Respiratory Rate Blood Pressure 101/59 Blood Pressure [Right] O2 Sat by Pulse 98 97 Oximetry 08/18/19 08/18/19 08/18/19 13:36 13:41 13:46 Temperature Pulse Rate 91 H 83 86 Respiratory Rate Blood Pressure Blood Pressure [Right] O2 Sat by Pulse 97 98 98 Oximetry 08/18/19 08/18/19 08/18/19 13:48 13:51 13:56 Temperature Pulse Rate 80 84 72 Respiratory Rate Blood Pressure 96/51 Blood Pressure [Right] O2 Sat by Pulse 97 97 Oximetry 08/18/19 08/18/19 08/18/19 14:00 14:01 14:03 Temperature 98.5 F Pulse Rate 73 70 77 Respiratory 16 Rate Blood Pressure 89/51 Blood Pressure 92/53 [Right] O2 Sat by Pulse 97 97 Oximetry 08/18/19 08/18/19 08/18/19 14:06 14:11 14:16 Temperature Pulse Rate 75 70 75 Respiratory Rate Blood Pressure Blood Pressure [Right] O2 Sat by Pulse 97 97 97 Oximetry 08/18/19 08/18/19 08/18/19 14:18 14:21 14:26 Temperature Pulse Rate 78 72 86 Respiratory Rate Blood Pressure 92/53 Blood Pressure [Right] O2 Sat by Pulse 97 99 Oximetry 08/18/19 08/18/19 08/18/19 14:31 14:33 14:36 Temperature Pulse Rate 81 85 80 Respiratory Rate Blood Pressure 93/58 Blood Pressure [Right] O2 Sat by Pulse 97 96 Oximetry 08/18/19 08/18/19 08/18/19 14:41 14:46 14:48 Temperature Pulse Rate 81 86 78 Respiratory Rate Blood Pressure 99/58 Blood Pressure [Right] O2 Sat by Pulse 98 97 Oximetry 08/18/19 08/18/19 08/18/19 14:51 14:56 15:01 Temperature Pulse Rate 97 H 94 H 91 H Respiratory Rate Blood Pressure Blood Pressure [Right] O2 Sat by Pulse 97 97 96 Oximetry 08/18/19 08/18/19 08/18/19 15:04 15:06 15:11 Temperature Pulse Rate 88 86 92 H Respiratory Rate Blood Pressure 100/58 Blood Pressure [Right] O2 Sat by Pulse 96 96 Oximetry 08/18/19 08/18/19 08/18/19 15:16 15:20 15:21 Temperature Pulse Rate 89 101 H 88 Respiratory Rate Blood Pressure 105/52 Blood Pressure [Right] O2 Sat by Pulse 96 97 Oximetry 08/18/19 08/18/19 08/18/19 15:26 15:32 15:34 Temperature Pulse Rate 93 H 79 84 Respiratory Rate Blood Pressure 99/61 Blood Pressure [Right] O2 Sat by Pulse 98 96 Oximetry 08/18/19 08/18/19 08/18/19 15:37 15:42 15:47 Temperature Pulse Rate 85 85 86 Respiratory Rate Blood Pressure Blood Pressure [Right] O2 Sat by Pulse 98 98 97 Oximetry 08/18/19 08/18/19 08/18/19 15:48 15:49 15:52 Temperature Pulse Rate 88 88 83 Respiratory Rate Blood Pressure 104/67 Blood Pressure [Right] O2 Sat by Pulse 92 97 Oximetry 08/18/19 15:57 Temperature Pulse Rate 91 H Respiratory Rate Blood Pressure Blood Pressure [Right] O2 Sat by Pulse 98 Oximetry - Exam Lungs: Normal air movement Vulva: both: normal FHR: category 1 Uterine Contraction Monitor Mode: Internal Cervical Dilatation: 8 Cervical Effacement Percentage: 100 station: 0 Uterine Contraction Pattern: Regular Uterine Tone Measurement Phase: Resting Uterine Contraction Intensity: Moderate Extremities: normal Deep Tendon Reflex Grade: Normal +2 - Labs Labs: Abnormal Labs 08/18/19 03:00 RDW 15.5 H Laboratory Results - last 24 hr 08/18/19 08/18/19 03:00 03:00 WBC 6.9 RBC 4.52 Hgb 12.5 Hct 37.8 MCV 84 MCH 28 MCHC 33 RDW 15.5 H Plt Count 221 Blood Type B POSITIVE Antibody Screen Negative
--- NOTE | 2019-08-18 18:55 | Procedure Note ---
OB Delivery Note - Delivery Date of Delivery: 08/18/19 ( complicated by shoulder dystocia) [employer]: MATT QUIROS (Maida GERARD, jefferson) Estimated blood loss: other (600ml) - Vaginal Delivery presentation: vertex Delivery position: OA Intrapartum events: shoulder dystocia Delivery augmentation: rupture of membranes, pitocin Delivery monitor: internal FHT, internal uterine Route of delivery: Delivery placenta: spontaneous Episiotomy: none Delivery laceration: none Anesthesia: epidural Delivery comments: of viable male infant over intact perineum. Complicated by shoulder dystocia. head delivered LOD, right shoulder anterior. Head of bed down, legs placed in [place]. Delivery of head to shoulders was a total of 30 seconds. 3 vessel cord, clamped and cut. taken to warmer for evaluation by ROBB team. Placenta delivered and examined and found to be intact. After delivery of placenta around 300ml gush of blood. Perineum examined and no lacerations noted. No clots noted after delivery. Fundus firm at the umbilicus. Moderate Rubra noted. EBL 600ml. Apgars 7/8. Mother and infant in stable condition in LDR room.
[2019-08-18] MEDS ORDERED: ONDANSETRON 4 MG/2 ML INJ IV PRN (21:30)
[2019-08-18] MEDS ORDERED: PROMETHAZINE 25 MG TAB PO PRN (21:30)
[2019-08-18] MEDS ORDERED: diphenhydrAMINE 25 MG CAP PO PRN (21:30)
[2019-08-18] MEDS ORDERED: MAGNESIUM HYDROXIDE (MOM) ORAL LIQD UDC PO PRN (21:30)
[2019-08-18] MEDS ORDERED: LANOLIN/ZINC/DIMETHICONE (LANSINOH) 7 GM TP PRN (21:30)
[2019-08-18] MEDS ORDERED: WITCH HAZEL/ GLYCERIN PAD TP PRN (21:30)
[2019-08-18] MEDS ORDERED: ACETAMINOPHEN 325 MG TAB PO PRN (21:30)
[2019-08-18] MEDS: DOCUSATE SODIUM 100 MG CAP PO SCH (22:14)
[2019-08-18] MEDS: IBUPROFEN 600 MG TAB PO SCH (22:14)
[2019-08-19] MEDS: IBUPROFEN 600 MG TAB PO SCH ×4 (04:52→22:38)
--- NOTE | 2019-08-19 08:24 | Discharge Summary ---
Providers - Providers Date of Admission: 08/18/19 12:51 Date of discharge: 08/19/19 (Pt agrees to D/C home tonight ) Attending physician: MAEVE JIMENEZ Primary care physician: MAEVE JIMENEZ Hospitalization Reason for admission: @ 40 weeks Condition: Good Pertinent studies: H/H pending to be drawn today. P: Pt can be D/C home with stable H/H levels. Procedures: Uncomplicated Hospital course: Uncomplicated and PP course Disposition: DC-01 TO HOME OR SELFCARE - Discharge Diagnoses (1) Vaginal delivery Status: Acute Core Measure Documentation - Palliative Care Palliative Care/ Comfort Measures: Not Applicable - Core Measures Any of the following diagnoses?: none Exam - Constitutional Vitals: Temp Pulse Resp BP Pulse Ox 98.3 F 96 H 20 130/80 95 08/19/19 05:40 08/19/19 05:40 08/19/19 05:40 08/19/19 05:40 08/19/19 05:40 General appearance: Present: no acute distress, well-nourished - EENT Eyes: Present: PERRL ENT: hearing intact, clear oral mucosa - Neck Neck: Present: supple, normal ROM - Respiratory Respiratory effort: normal Respiratory: bilateral: CTA - Cardiovascular Rhythm: regular Heart Sounds: Absent: rub, click - Extremities Extremities: pulses symmetrical, No edema Peripheral Pulses: within normal limits - Abdominal General gastrointestinal: Present: soft, non-tender, non-distended, normal bowel sounds Female genitourinary: Present: normal - Integumentary Integumentary: Present: clear, warm, dry - Musculoskeletal Musculoskeletal: gait normal, strength equal bilaterally - Psychiatric Psychiatric: appropriate mood/affect, intact judgment & insight - Neurologic Neurologic: CNII-XII intact, moves all extremities Plan Activity: no restrictions Weight Bearing Status: Full Weight Bearing Diet: regular Follow up with: MAEVE JIMENEZ MD [Primary Care Provider] - 7 Days (Congratulations! Please call our office at [phone] to schedule your son's circumcision appointment in 1 week. Bring EMLA cream to appointment for further instruction on use. Additionally, call our office to schedule your 4-week visit. Contact our office with any questions or concerns. )
[2019-08-19] MEDS: PRENATAL VIT27-FE FUMARATE-FOLIC ACID VIT TAB PO SCH (10:43)
[2019-08-19] MEDS: DOCUSATE SODIUM 100 MG CAP PO SCH ×2 (10:45→22:35)
[2019-08-19 10:54] LABS: Hematocrit 32.4 % (30.3-42.9); Hemoglobin 10.7 gm/dl (10.1-14.3)
[2019-08-19] MEDS ORDERED: KETOROLAC 30 MG/1 ML INJ IV ONE (21:50)
[2019-08-20] MEDS ORDERED: TETANUS,DIPH,PERTUSS(ACELL) VACCINE 0.5 ML SYRINGE IM ONE (06:00)
[2019-08-20] MEDS: IBUPROFEN 600 MG TAB PO SCH ×2 (06:11→11:59)
[2019-08-20] MEDS ORDERED: FLU VACC QUAD 2019-20 (3 YR UP)/PF 60 MCG/0.5 ML SYRINGE IM ONE (10:00)
--- NOTE | 2019-08-20 10:06 | Post Anesthesia Evaluation ---
- Post Anesthesia Evaluation Patient Participated: Yes Airway Patent: Yes Stable Respiratory Function: Yes Nausea/Vomiting: No Temp > 96.8F: Yes Pain Manageable: Yes Adequeate Hydration: Yes Anesthesia Complications: No Block Receding Appropriately: Yes Patient on Ventilator: No
[2019-08-20] MEDS: DOCUSATE SODIUM 100 MG CAP PO SCH (12:02)
[2019-08-20] MEDS: PRENATAL VIT27-FE FUMARATE-FOLIC ACID VIT TAB PO SCH (14:00)
[2019-08-20 16:06] VITALS: BP 118/68
== END 2019-08-20 15:20 | disposition home or self-care (01) | DRG 775 ==
LOC: TRG 23:30 → LD 08-18 02:59 → OBSVTOIN 08-18 12:51 → OB 08-18 20:49
PROVIDERS: ADMIT Obstetrics & Gynecology; ATTEND Obstetrics & Gynecology
PROC: 10E0XZZ Delivery of Products of Conception, External Approach (ICD-10-PCS; principal; 2019-08-18)
PROC: 10907ZC Drainage of Amniotic Fluid, Therapeutic from Products of Conception, Via Natural or Artificial Opening (ICD-10-PCS; 2019-08-18)
PROC: 10H07YZ Insertion of Other Device into Products of Conception, Via Natural or Artificial Opening (ICD-10-PCS; 2019-08-18)
PROC: 3E0R3BZ Introduction of Anesthetic Agent into Spinal Canal, Percutaneous Approach (ICD-10-PCS; 2019-08-18)
PROC: 00HU33Z Insertion of Infusion Device into Spinal Canal, Percutaneous Approach (ICD-10-PCS; 2019-08-18)
PROC: 3E0234Z Introduction of Serum, Toxoid and Vaccine into Muscle, Percutaneous Approach (ICD-10-PCS; 2019-08-20)
DX: O66.0 Obstructed labor due to shoulder dystocia (principal); Z3A.40 40 weeks gestation of pregnancy; Z37.0 Single live birth; Z23 Encounter for immunization; Z79.899 Other long term (current) drug therapy
CPT/HCPCS: 36415; 59025; 85014; 85018; 85027; 86850; 86900; 86901; 90686; 96360; 96361; 96365; 96366; G0378; J0171; J1885; J2590; J3490; J7120